=== PATIENT | female | born 1960 | race African-American/Black ===

== ENCOUNTER 2018-02-17 21:31 | Inpatient (IN) | payer MEDICAID ==
[~2018-02-17] VITALS: Ht 154.9 cm; Wt 196.0 kg
[~2018-02-17 21:31] MED LIST: LOSA100T27 PO; METO-159 PO; PRAV20TA3 PO
[2018-02-17 23:11] LABS: Basophils # (auto) 0.1 uL; Basophils % (auto) 1.1 % (0.0-2.0); Eosinophils # (auto) 0.3 uL; Eosinophils % (auto) 3.9 % (0.0-7.0); Hematocrit 41.3 % (36.0-46.0); Hemoglobin 13.7 g/dL (12.2-16.2); Lymphocytes # (auto) 3.2 uL; Lymphocytes % (auto) 42.1 % (10.0-50.0); Mean Corpuscular Hemoglobin 28.6 pg (28.0-32.0); Mean Corpuscular Hgb Conc. 33.1 g/dL (32.0-36.0); Mean Corpuscular Volume 86.4 fL (80.0-100.0); Monocytes # (auto) 0.7 uL; Monocytes % (auto) 9.2 % (0.0-12.0); Neutrophils # (auto) 3.3 uL; Neutrophils % (auto) 43.7 % (37.0-80.0); Nucleated Red Blood Cells % 0.3 %; Platelet Count (auto) 194 10^3/uL (140-450); Red Blood Cells 4.78 10^6/uL (4.0-5.20); Red Cell Distribution Width 13.6 % (11.8-14.3); White Blood Cell 7.5 10^3/uL (4.4-10.8)
[2018-02-17 23:26] LABS: Albumin 3.8 g/dL (3.4-5.0); Calcium 11.3 mg/dL (8.5-10.1); Potassium 4.2 mmol/L (3.5-5.1)
[2018-02-17 23:28] LABS: Partial Thromboplastin Time 29.4 sec (23.78-33.04); Prothrombin Time 10.7 sec (9.27-12.13)
[2018-02-17 23:29] LABS: Bilirubin, Total 0.2 mg/dL (0.2-1.0)
[2018-02-18] MEDS ORDERED: MORPHINE SULF INJ 2 MG/ML SYRINGE 1ML IV ONE (08:00)
[2018-02-18] MEDS ORDERED: METOCLOPRAMIDE HCL 5MG/ml INJ 2ml VIAL IV ONE (08:00)
[2018-02-18 08:56] LABS: Urine Bacteria NONE SEEN /hpf (None Seen); Urine Blood Negative /uL (Negative); Urine Specific Gravity 1.008 (1.001-1.035); Urine WBC <1 /hpf (0 - 5)
[2018-02-18] MEDS ORDERED: MORPHINE SULF INJ 2 MG/ML SYRINGE 1ML IV PRN (09:45)
[2018-02-18] MEDS ORDERED: ACETAMINOPHEN 325 MG TAB PO PRN (09:45)
[2018-02-18] MEDS ORDERED: CARISOPRODOL 350 MG TAB PO PRN (09:45)
[2018-02-18] MEDS ORDERED: TEMAZEPAM 15 MG CAP PO PRN (09:45)
[2018-02-18] MEDS ORDERED: DOCUSATE SOD 100 MG CAP PO PRN (09:45)
[2018-02-18] MEDS ORDERED: FAMOTIDINE 20 MG TAB PO SCH (10:00)
[2018-02-18] MEDS ORDERED: PROMETHAZINE HCL 25 MG/ML 1ML IV PRN (10:00)
[2018-02-18] MEDS: PANTOPRAZOLE 40 MG TAB PO SCH (10:00)
[2018-02-18] MEDS ORDERED: traMADol HCL 50 MG TAB PO PRN (10:00)
[2018-02-18] MEDS ORDERED: cloNIDine HCL 0.1 MG TAB PO PRN (10:00)
[2018-02-18] MEDS: HCTZ 25 MG TAB PO SCH (11:25)
[2018-02-18] MEDS: LOSARTAN POTASSIUM 50 MG TAB PO SCH (11:25)
[2018-02-18] MEDS: MULTIPLE VITAMIN TAB PO SCH (11:26)
[2018-02-18] MEDS: METOPROLOL SUCCINATE XL 50 MG TAB PO SCH (11:27)
[2018-02-18] MEDS: SODIUM CHLOR 0.9% PF (SALINE LOCK) 10ML VIAL/SYR IV SCH ×2 (15:06→21:21)
[2018-02-18 16:48] VITALS: BP 124/66
[2018-02-18] MEDS ORDERED: CARI-316 PO (17:07)
[2018-02-18] MEDS ORDERED: TRAM50TA2 PO (17:07)
[2018-02-18 22:00] VITALS: BP 101/64
[2018-02-18] MEDS ORDERED: PRAVASTATIN SODIUM 20 MG TAB PO SCH (22:00)
[2018-02-19 05:03] VITALS: BP 105/63
[2018-02-19] MEDS: SODIUM CHLOR 0.9% PF (SALINE LOCK) 10ML VIAL/SYR IV SCH ×2 (05:30→14:00)
[2018-02-19 05:33] LABS: Basophils # (auto) 0 uL; Basophils % (auto) 0.7 % (0.0-2.0); Eosinophils # (auto) 0.3 uL; Eosinophils % (auto) 4.2 % (0.0-7.0); Hematocrit 41.4 % (36.0-46.0); Hemoglobin 14.1 g/dL (12.2-16.2); Lymphocytes # (auto) 2.7 uL; Lymphocytes % (auto) 42.4 % (10.0-50.0); Mean Corpuscular Hemoglobin 29.1 pg (28.0-32.0); Mean Corpuscular Volume 85.6 fL (80.0-100.0); Monocytes # (auto) 0.5 uL; Monocytes % (auto) 7.6 % (0.0-12.0); Neutrophils # (auto) 2.9 uL; Neutrophils % (auto) 45.1 % (37.0-80.0); Nucleated Red Blood Cells % 0.2 %; Platelet Count (auto) 192 10^3/uL (140-450); Red Blood Cells 4.83 10^6/uL (4.0-5.20); Red Cell Distribution Width 13.4 % (11.8-14.3); White Blood Cell 6.5 10^3/uL (4.4-10.8)
[2018-02-19 05:56] LABS: Albumin 3.8 g/dL (3.4-5.0); BUN/Creatinine Ratio 16.5; Bilirubin, Total 0.5 mg/dL (0.2-1.0); Calcium 10.4 mg/dL (8.5-10.1); Potassium 3.8 mmol/L (3.5-5.1); Total Protein 7.7 g/dL (6.4-8.2)
[2018-02-19] MEDS ORDERED: EZ PAQUE SUSP 12OZ BTL ONE (09:43)
[2018-02-19] MEDS ORDERED: BARIUM SULFATE 98% 340 GM PWDR ONE (09:43)
[2018-02-19] MEDS ORDERED: EZ-GAS II GRANULES (RADIOLOGY USE) PO ONE (09:43)
[2018-02-19 10:00] VITALS: BP 113/71
[2018-02-19] MEDS: MULTIPLE VITAMIN TAB PO SCH (10:00)
[2018-02-19] MEDS: PANTOPRAZOLE 40 MG TAB PO SCH (10:00)
[2018-02-19] MEDS: HCTZ 25 MG TAB PO SCH (10:00)
[2018-02-19] MEDS: LOSARTAN POTASSIUM 50 MG TAB PO SCH (10:00)
[2018-02-19] MEDS: METOPROLOL SUCCINATE XL 50 MG TAB PO SCH (10:00)
[2018-02-19 12:53] VITALS: BP 142/76
== END 2018-02-19 16:50 | disposition home or self-care (01) | DRG 241 ==
LOC: ER 21:31 → OVERFLOW 21:32 → WEST WING 02-18 16:34
PROVIDERS: ADMIT Internal Medicine; ATTEND Internal Medicine
DX: K29.00 Acute gastritis without bleeding (principal); N18.3 Chronic kidney disease, stage 3 (moderate); E83.52 Hypercalcemia; N28.1 Cyst of kidney, acquired; K44.9 Diaphragmatic hernia without obstruction or gangrene; I12.9 Hypertensive chronic kidney disease with stage 1 through stage 4 chronic kidney disease, or unspecified chronic kidney disease; E78.5 Hyperlipidemia, unspecified; Z87.442 Personal history of urinary calculi; Z90.5 Acquired absence of kidney; Z53.20 Procedure and treatment not carried out because of patient's decision for unspecified reasons; Z80.9 Family history of malignant neoplasm, unspecified; Z98.51 Tubal ligation status; Z90.49 Acquired absence of other specified parts of digestive tract; Z88.1 Allergy status to other antibiotic agents; Z91.041 Radiographic dye allergy status
CPT/HCPCS: 36415; 74176; 74247; 76705; 80053; 81001; 82150; 83690; 84110; 85025; 85610; 85730; 94761; 96374; 96375

== ENCOUNTER 2018-09-23 15:03 | Emergency (ER) | payer MEDICAID ==
[~2018-09-23] VITALS: Ht 154.9 cm; Wt 89.4 kg
[~2018-09-23 15:03] MED LIST changes: +CARI350T22 PO; +LOSA-49 PO; -LOSA100T27 PO; +TRAM50TA2 PO
[2018-09-23 15:46] LABS: Basophils # (auto) 0.1 uL; Basophils % (auto) 1.4 % (0.0-2.0); Eosinophils # (auto) 0.3 uL; Eosinophils % (auto) 4.7 % (0.0-7.0); Hemoglobin 13.3 g/dL (12.2-16.2); Lymphocytes # (auto) 2.6 uL; Lymphocytes % (auto) 41.5 % (10.0-50.0); Mean Corpuscular Volume 85.4 fL (80.0-100.0); Monocytes # (auto) 0.4 uL; Monocytes % (auto) 6.9 % (0.0-12.0); Neutrophils # (auto) 2.8 uL; Neutrophils % (auto) 45.5 % (37.0-80.0); Nucleated Red Blood Cells % 0.2 %; Platelet Count (auto) 194 10^3/uL (140-450); Red Blood Cells 4.57 10^6/uL (4.0-5.20); Red Cell Distribution Width 13.6 % (11.8-14.3); White Blood Cell 6.2 10^3/uL (4.4-10.8)
[2018-09-23 15:54] LABS: INR 0.98 (0.9-1.15); Partial Thromboplastin Time 28.7 sec (23.78-33.04); Prothrombin Time 10.5 sec (9.27-12.13)
[2018-09-23 15:55] LABS: Albumin 3.5 g/dL (3.4-5.0); Anion Gap 6 (5-15); BUN/Creatinine Ratio 15.2; Blood Urea Nitrogen 17 mg/dL (7-18); Calcium 10.3 mg/dL (8.5-10.1); Carbon Dioxide 27 mmol/L (21-32); Chloride 107 mmol/L (98-107); GFR African American 64 mL/min; GFR Non-African American 53 mL/min; Glucose 130 mg/dL (74-106); Potassium 3.8 mmol/L (3.5-5.1); Sodium 140 mmol/L (136-145)
[2018-09-23 16:00] LABS: Alanine Aminotransferase 26 U/L (13-56); Alkaline Phosphatase 89 U/L (45-117); Aspartate Aminotransferase 18 U/L (15-37); Bilirubin, Total 0.3 mg/dL (0.2-1.0); Total Protein 7.6 g/dL (6.4-8.2)
[2018-09-23] MEDS ORDERED: ASPirin 81 mg TAB PO ONE (16:00)
[2018-09-23] MEDS ORDERED: PANTOPRAZOLE 40 MG TAB PO ONE (16:00)
[2018-09-23 19:43] VITALS: BP 162/79
== END 2018-09-23 20:06 | disposition home or self-care (01) ==
LOC: ER 15:06
DX: K29.70 Gastritis, unspecified, without bleeding (principal); E78.5 Hyperlipidemia, unspecified; I10 Essential (primary) hypertension; Z88.1 Allergy status to other antibiotic agents; Z79.899 Other long term (current) drug therapy; Z87.442 Personal history of urinary calculi; Z90.49 Acquired absence of other specified parts of digestive tract
CPT/HCPCS: 36415; 71046; 80053; 84484; 85025; 85610; 85730; 93005

== ENCOUNTER 2018-11-11 07:33 | Emergency (ER) | payer MEDICAID ==
[~2018-11-11] VITALS: Ht 154.9 cm; Wt 88.5 kg
[2018-11-11 08:40] LABS: Urine Bacteria NONE SEEN /hpf (None Seen); Urine Blood Negative /uL (Negative); Urine WBC 1 /hpf (0 - 5)
[2018-11-11 08:41] LABS: Basophils # (auto) 0 uL; Basophils % (auto) 0.7 % (0.0-2.0); Eosinophils # (auto) 0.4 uL; Hematocrit 39.6 % (36.0-46.0); Lymphocytes # (auto) 2.6 uL; Lymphocytes % (auto) 43.3 % (10.0-50.0); Mean Corpuscular Hemoglobin 28.4 pg (28.0-32.0); Mean Corpuscular Volume 86.2 fL (80.0-100.0); Monocytes # (auto) 0.6 uL; Monocytes % (auto) 9.4 % (0.0-12.0); Neutrophils # (auto) 2.4 uL; Neutrophils % (auto) 40.6 % (37.0-80.0); Nucleated Red Blood Cells % 0.2 %; Platelet Count (auto) 193 10^3/uL (140-450); Red Blood Cells 4.59 10^6/uL (4.0-5.20); Red Cell Distribution Width 13.6 % (11.8-14.3)
[2018-11-11 08:53] LABS: Albumin 3.5 g/dL (3.4-5.0); BUN/Creatinine Ratio 14.7; Calcium 10.7 mg/dL (8.5-10.1); Potassium 3.7 mmol/L (3.5-5.1)
[2018-11-11 08:56] LABS: Bilirubin, Total 0.4 mg/dL (0.2-1.0); Total Protein 7.6 g/dL (6.4-8.2)
[2018-11-11 09:42] VITALS: BP 147/89
== END 2018-11-11 10:19 | disposition home or self-care (01) ==
LOC: ER 07:33
DX: R10.11 Right upper quadrant pain (principal); R11.2 Nausea with vomiting, unspecified; E11.9 Type 2 diabetes mellitus without complications; E78.5 Hyperlipidemia, unspecified; I10 Essential (primary) hypertension; Z98.51 Tubal ligation status; Z88.6 Allergy status to analgesic agent; Z91.041 Radiographic dye allergy status; Z90.49 Acquired absence of other specified parts of digestive tract; Z87.442 Personal history of urinary calculi
CPT/HCPCS: 36415; 74176; 80053; 81001; 82150; 83690; 85025; 93005

== ENCOUNTER 2019-06-16 16:12 | Inpatient (IN) | payer MEDICAID ==
[~2019-06-16] VITALS: Ht 154.9 cm; Wt 90.6 kg
[~2019-06-16 16:12] MED LIST changes: +LOSA-39 PO; -LOSA-49 PO
[2019-06-16] MEDS ORDERED: ASPirin 81 mg TAB PO ONE (16:30)
[2019-06-16 16:57] LABS: Basophils # (auto) 0.1 uL; Eosinophils # (auto) 0.2 uL; Eosinophils % (auto) 2.1 % (0.0-7.0); Hematocrit 37.4 % (36.0-46.0); Hemoglobin 12.6 g/dL (12.2-16.2); Lymphocytes # (auto) 2.5 uL; Lymphocytes % (auto) 27.9 % (10.0-50.0); Mean Corpuscular Hemoglobin 28.9 pg (28.0-32.0); Mean Corpuscular Hgb Conc. 33.8 g/dL (32.0-36.0); Mean Corpuscular Volume 85.6 fL (80.0-100.0); Monocytes # (auto) 0.7 uL; Monocytes % (auto) 7.7 % (0.0-12.0); Neutrophils # (auto) 5.6 uL; Neutrophils % (auto) 61.3 % (37.0-80.0); Nucleated Red Blood Cells % 0.1 %; Platelet Count (auto) 312 10^3/uL (140-450); Red Blood Cells 4.37 10^6/uL (4.0-5.20); Red Cell Distribution Width 12.8 % (11.8-14.3); White Blood Cell 9.1 10^3/uL (4.4-10.8)
[2019-06-16 17:14] LABS: Albumin 3.2 g/dL (3.4-5.0); Anion Gap 6 (5-15); Blood Urea Nitrogen 19 mg/dL (7-18); Carbon Dioxide 29 mmol/L (21-32); Chloride 102 mmol/L (98-107); Glucose 152 mg/dL (74-106); Potassium 3.6 mmol/L (3.5-5.1); Sodium 137 mmol/L (136-145)
[2019-06-16 17:21] LABS: Alanine Aminotransferase 25 U/L (13-56); Alkaline Phosphatase 91 U/L (45-117); Aspartate Aminotransferase 18 U/L (15-37); BUN/Creatinine Ratio 15.7; Bilirubin, Total 0.3 mg/dL (0.2-1.0); GFR African American 59 mL/min; GFR Non-African American 48 mL/min; Total Protein 8.3 g/dL (6.4-8.2)
[2019-06-16] MEDS ORDERED: TEMAZEPAM 15 MG CAP PO PRN (21:30)
[2019-06-16] MEDS ORDERED: ONDANSETRON HCL 4 MG/2 ML VIAL IV PRN (21:30)
[2019-06-16] MEDS: METOPROLOL SUCCINATE XL 50 MG TAB PO SCH (22:29)
[2019-06-16] MEDS ORDERED: HCTZ25T PO (23:06)
[2019-06-16] MEDS: ACETAMINOPHEN 325 MG TAB PO PRN (23:06)
[2019-06-16] MEDS ORDERED: LOSA-69 PO (23:06)
[2019-06-16 23:40] VITALS: BP 156/86
[2019-06-17 05:27] VITALS: BP 156/86
[2019-06-17 05:29] VITALS: BP 129/74
[2019-06-17 06:25] LABS: Basophils # (auto) 0 uL; Basophils % (auto) 0.3 % (0.0-2.0); Eosinophils # (auto) 0.2 uL; Eosinophils % (auto) 2.6 % (0.0-7.0); Hematocrit 34.6 % (36.0-46.0); Hemoglobin 11.8 g/dL (12.2-16.2); Lymphocytes # (auto) 1.6 uL; Lymphocytes % (auto) 18.4 % (10.0-50.0); Mean Corpuscular Hemoglobin 28.9 pg (28.0-32.0); Mean Corpuscular Hgb Conc. 34.2 g/dL (32.0-36.0); Mean Corpuscular Volume 84.5 fL (80.0-100.0); Monocytes # (auto) 0.9 uL; Monocytes % (auto) 9.7 % (0.0-12.0); Neutrophils # (auto) 6.1 uL; Platelet Count (auto) 286 10^3/uL (140-450); Red Blood Cells 4.09 10^6/uL (4.0-5.20); White Blood Cell 8.9 10^3/uL (4.4-10.8)
[2019-06-17 06:45] LABS: Potassium 3.9 mmol/L (3.5-5.1)
[2019-06-17] MEDS: ACETAMINOPHEN 325 MG TAB PO PRN ×2 (06:51→21:33)
--- NOTE | 2019-06-17 07:33 | NUR ---
Opening Shift Note Assumed care of patient, awake and alert. No S/S of distress/SOB or pain. Instructed on POC and to call for assist PRN, will continue to monitor for changes Q1hr and PRN.
[2019-06-17 08:56] VITALS: BP 113/70
[2019-06-17] MEDS: LOSARTAN POTASSIUM 25 MG TAB PO SCH (09:59)
[2019-06-17] MEDS: PANTOPRAZOLE 40 MG TAB PO SCH (09:59)
[2019-06-17] MEDS ORDERED: METOPROLOL SUCCINATE XL 50 MG TAB PO SCH (10:00)
[2019-06-17] MEDS: METOPROLOL SUCCINATE XL 50 MG TAB PO SCH (10:00)
--- NOTE | 2019-06-17 10:30 | NUR ---
LATE ENTRY MD Alli MAGALLANES AT BEDSIDE. ALL QUESTIONS AND CONCERNS ADDRESSED AT THIS TIME.
[2019-06-17 12:41] VITALS: BP 113/73
[2019-06-17 13:07] LABS: INR 1.12 (0.9-1.15)
[2019-06-17] MEDS: SODIUM CHLORIDE 0.9% 1,000 ML IV SCH (15:45)
[2019-06-17 16:46] VITALS: BP 90/52
[2019-06-17 22:00] VITALS: BP 123/75
[2019-06-18 05:00] VITALS: BP 122/79
[2019-06-18 09:00] VITALS: BP 132/74
--- NOTE | 2019-06-18 09:08 | NUR ---
IV insertion IV access obtained, via clean sterile technique by inserting 20 gauge catheter at right forearm after 2 attempt(s). IV secured properly. No trauma to site. Patient tolerated well. IV removal IV DC'd with clean sterile technique, catheter fully intact. Pressure dressing applied to site. Patient tolerated well.
--- NOTE | 2019-06-18 09:50 | NUR ---
EXTRACORPOREAL CIRCULATION SPECIALIST AT BEDSIDE.
[2019-06-18] MEDS: PANTOPRAZOLE 40 MG TAB PO SCH (10:00)
[2019-06-18] MEDS: LOSARTAN POTASSIUM 25 MG TAB PO SCH (10:00)
[2019-06-18] MEDS: METOPROLOL SUCCINATE XL 50 MG TAB PO SCH (10:00)
[2019-06-18] MEDS ORDERED: LIDOCAINE 2%HCL (LOCAL ANESTH.) INJ 20ML MDV ONE (10:12)
--- NOTE | 2019-06-18 10:48 | NUR ---
PT BROUGHT DOWN FOR PROCEDURE
[2019-06-18] MEDS ORDERED: MIDAZOLAM HCL 1MG/1ML-2 ML VIAL IV ONE (11:15)
[2019-06-18] MEDS ORDERED: fentaNYL CITRATE 100 MCG/2 ML VL IV ONE (11:15)
[2019-06-18] MEDS: SODIUM CHLORIDE 0.9% 1,000 ML IV SCH (12:12)
--- NOTE | 2019-06-18 12:52 | NUR ---
PT BROUGHT BACK TO UNIT FROM PROCEDURE. LEFT LATERAL CHEST INCICION IS CDI. NO DISTRESS OR SOB NOTED AT THIS TIME.
[2019-06-18 13:00] VITALS: BP 112/80
[2019-06-18] MEDS: ACETAMINOPHEN 325 MG TAB PO PRN (14:03)
--- NOTE | 2019-06-18 15:15 | NUR ---
ROUNDING MD Alli MAGALLANES AT BEDSIDE. ALL QUESTIONS AND CONCERNS ADDRESSED AT THIS TIME.
[2019-06-18 16:35] VITALS: BP 107/68
[2019-06-18] MEDS: OXYCODONE W/ ACETAMINOPHEN 5/325MG TABLET PO PRN ×2 (16:49→22:50)
[2019-06-18 22:00] VITALS: BP 99/69
[2019-06-19] MEDS: SODIUM CHLORIDE 0.9% 1,000 ML IV SCH ×2 (03:26→17:45)
[2019-06-19 05:00] VITALS: BP 115/76
--- NOTE | 2019-06-19 07:45 | NUR ---
Opening Shift Note Assumed care of patient, awake, alert and oriented x4. Patient on RA, breath sounds even and unlabored. No S/S of distress/SOB or pain. Bed at lowest locked position, bed side rails up x2 and call light within reach. Instructed on POC and to call for assist PRN, will continue to monitor for changes Q1hr and PRN.
[2019-06-19 08:00] VITALS: BP 130/74
[2019-06-19 09:22] VITALS: BP 130/74
[2019-06-19] MEDS: METOPROLOL SUCCINATE XL 50 MG TAB PO SCH (09:57)
[2019-06-19] MEDS: PANTOPRAZOLE 40 MG TAB PO SCH (09:57)
[2019-06-19] MEDS: LOSARTAN POTASSIUM 25 MG TAB PO SCH (09:58)
--- NOTE | 2019-06-19 10:00 | NUR ---
IV insertion IV access obtained, via clean sterile technique by inserting 20 gauge catheter at left FA after 1 attempt. IV secured properly. No trauma to site. Patient tolerated well.
[2019-06-19 13:00] VITALS: BP 109/68
[2019-06-19] MEDS: ACETAMINOPHEN 325 MG TAB PO PRN (13:52)
--- NOTE | 2019-06-19 16:10 | NUR ---
assessment Patient has no post discharge needs at this time. Addendum: 06/19/19 at 1610 by Madison LOPEZ Amended: Links added.
[2019-06-19 16:44] VITALS: BP 90/71
[2019-06-19 17:18] VITALS: BP 90/71
== END 2019-06-19 18:45 | disposition home or self-care (01) | DRG 144 ==
LOC: ER 16:12 → OVERFLOW 16:13 → WEST WING 22:34
PROVIDERS: ADMIT Nurse Practitioner; ATTEND Internal Medicine
PROC: 0BBH3ZX Excision of Lung Lingula, Percutaneous Approach, Diagnostic (ICD-10-PCS; principal; 2019-06-18)
DX: R91.8 Other nonspecific abnormal finding of lung field (principal); E11.22 Type 2 diabetes mellitus with diabetic chronic kidney disease; N18.3 Chronic kidney disease, stage 3 (moderate); E66.01 Morbid (severe) obesity due to excess calories; E78.00 Pure hypercholesterolemia, unspecified; I08.0 Rheumatic disorders of both mitral and aortic valves; I12.9 Hypertensive chronic kidney disease with stage 1 through stage 4 chronic kidney disease, or unspecified chronic kidney disease; J98.11 Atelectasis; E78.5 Hyperlipidemia, unspecified; K44.9 Diaphragmatic hernia without obstruction or gangrene; Z90.5 Acquired absence of kidney; Z88.1 Allergy status to other antibiotic agents; Z91.041 Radiographic dye allergy status; Z79.899 Other long term (current) drug therapy; Z87.442 Personal history of urinary calculi; Z90.89 Acquired absence of other organs; Z90.49 Acquired absence of other specified parts of digestive tract; Z98.51 Tubal ligation status; Z80.9 Family history of malignant neoplasm, unspecified; Z83.3 Family history of diabetes mellitus; Z82.49 Family history of ischemic heart disease and other diseases of the circulatory system; Z79.84 Long term (current) use of oral hypoglycemic drugs
CPT/HCPCS: 10022; 36415; 71045; 71046; 71250; 74176; 77012; 80048; 80053; 82105; 82378; 83036; 84443; 84484; 85025; 85610; 85730; 86300; 86301; 86304; 93005; 93306; G0378; J2250